=== PATIENT | female | born 1960 | race Caucasian/White ===

== ENCOUNTER → 2017-02-12 | Outpatient (CLI) | payer OTHER ==
--- NOTE | 2017-02-12 13:20 | CT ---
EXAMINATION TYPE: CT brain wo con DATE OF EXAM: 02/12/2017 COMPARISON: NONE INDICATION: Cramping and spasm, unspecified tremor DLP: 1012.70 mGycm, Automated exposure control for dose reduction was used. CONTRAST: None CT of the brain is performed utilizing 3 mm thick sections through the posterior fossa and 3 mm thick sections through the remaining calvarium. Study is performed within 24 hours of [facility] to the [facility]. There is dental amalgam scatter artifact at the level of the mandible and maxilla. No abnormal hyperdensity is present to suggest an acute intracranial hemorrhage. No mass lesion is evident. No acute infarcts are evident. Ventricles and sulci are appropriate for the patient age. Paranasal sinuses and mastoid air cells within the [id number] are clear. IMPRESSIONS: 1. No acute intracranial process.
== END | disposition home or self-care (01) ==
LOC: RADCTMAIN 12:59
PROVIDERS: ATTEND Neurological Surgery
DX: R25.2 Cramp and spasm (principal); R25.1 Tremor, unspecified; R51 Headache; R41.89 Other symptoms and signs involving cognitive functions and awareness
CPT/HCPCS: 70450